=== PATIENT | female | born 1935 ===

== ENCOUNTER 2017-07-23 07:55 | Day surgery (SDC) | payer MEDICARE, MEDICAID ==
[2017-07-23] MEDS ORDERED: Lactated Ringer's 500 ML IV ONE (08:35)
[2017-07-23 08:43] VITALS: O2SAT 100
[2017-07-23] MEDS ORDERED: Lidocaine PF 2% (5 ml) Inj (For Cardiac Arrhy) IV ONE (09:57)
[2017-07-23] MEDS ORDERED: Propofol 10 mg/ml Inj (20 ML) ONE (09:57)
[2017-07-23 10:38] VITALS: TEMP 98.5
[2017-07-23 10:54] VITALS: BP 110/67; PULSE 90; RESP 18
== END 2017-07-23 10:55 | disposition home or self-care (01) ==
LOC: H.ENDO 07:55 → MERGE 10:00 → H.ENDO 10:55
PROVIDERS: ATTEND Internal Medicine Gastroenterology
DX: R10.13 Epigastric pain (principal); K29.70 Gastritis, unspecified, without bleeding; K44.9 Diaphragmatic hernia without obstruction or gangrene
CPT/HCPCS: 43239; 82948; 88305; J2704; J7120